=== PATIENT | female | born 1950 | race African-American/Black ===

== ENCOUNTER 2018-06-09 22:25 | Emergency (ER) | END 2018-06-10 03:02 | disposition home or self-care (01) ==

== ENCOUNTER 2019-02-01 07:17 | Emergency (ER) | payer SELFPAY ==
[~2019-02-01] VITALS: Ht 170.2 cm; Wt 81.6 kg
[~2019-02-01 07:17] MED LIST: AMLO-496 PO; ASCO500C7 PO; CEPH-443 PO; HYDR25TA6 PO; IBUP-1542 PO; OMEG-135 PO; TRAM50TA2 PO; VITA-110 PO
[2019-02-01 07:27] VITALS: Ht 170.2 cm; Wt 81.6 kg
--- NOTE | 2019-02-01 08:27 | ERD ---
ER Documentation Chief Complaint Chief Complaint lower abdominal pain x 2 weeks getting worse HPI This is a 68-year-old female with a past medical history of hypertension, previous hysterectomy, who is presenting with 2 weeks of waxing and waning progressive worsening moderate right lower quadrant cramping sharp aching abdominal pain. The patient reports that she notices a worsening pain when she exercises, moves a certain way or bears down. She reports that her pain is improved with rest and not moving. The patient does report intermittent episodes of nausea without any vomiting. She has not had any constipation or diarrhea. She has not had any black or bloody or tarry stools. She has not had any dysuria or hematuria or urgency or frequency. Her symptoms are unchanged with eating. The patient denies feeling sick recently. The patient denies fever or chills. The patient has had no headache or vision changes. The patient does not endorse neck or back pain. The patient denies lightheadedness or dizziness. The patient has had no chest pain or trouble breathing. The patient has had no focal deficits. The patient has had no weakness or numbness or tingling to the face or extremities. ROS All systems reviewed and are negative except as per history of present illness. Medications Home Meds Active Scripts Tramadol HCl (Tramadol HCl) 50 Mg Tablet, 50 MG PO Q4 PRN for PAIN, #20 TAB Prov:DHRUV TALBERTRamu 06/10/18 Reported Medications Ascorbic Acid* (Vitamin C*) 500 Mg Capsule.sa, 1000 MG PO DAILY, CAP 06/09/18 Vitamin E* (Vitamin E*) 1,000 Unit Capsule, 1000 UNIT PO DAILY, CAP 06/09/18 [place]-3 Fatty Acids/Fish Oil (Fish Oil 1,000 mg Capsule) 1 Each Capsule, 1 EACH PO, CAP 06/09/18 Amlodipine Bes/Olmesartan Med (Amlodipine-Olmesartan 10-20 mg) 1 Each Tablet, 1 EACH PO, TAB 06/09/18 Hydrochlorothiazide* (Hydrochlorothiazide*) 25 Mg Tab, 25 MG PO BID, #60 TAB 06/09/18 Allergies Allergies: Coded Allergies: codeine (Verified Allergy, Unknown, 06/09/18) PMhx/Soc History of Surgery: Yes (Total abdominal hysterectomy) Anesthesia Reaction: No Hx Neurological Disorder: No Hx Respiratory Disorders: No Hx Cardiac Disorders: Yes (HTN) Hx Psychiatric Problems: No Hx Miscellaneous Medical Probl: Yes (FX LLE) Hx Alcohol Use: Yes (occasional wine) Hx Substance Use: No Hx Tobacco Use: No FmHx Family History: No diabetes Physical Exam Vitals Vital Signs Date Temp Pulse Resp B/P (MAP) Pulse Ox O2 O2 Flow FiO2 Time Delivery Rate 02/01/19 50 19 134/95 100 Room Air 08:28 (108) 02/01/19 97.3 57 20 162/84 95 07:27 (110) Physical Exam Const: No acute distress Head: Atraumatic Eyes: Normal Conjunctiva ENT: Normal External Ears, Nose and Mouth. Neck: Full range of motion. No meningismus. Resp: Clear to auscultation bilaterally Cardio: Regular rate and rhythm, no murmurs Abd: Mild right lower quadrant tenderness to palpation. No palpable inguinal herniation. Soft, non tender, non distended. Normal bowel sounds Skin: No petechiae or rashes Back: No midline or flank tenderness Ext: No cyanosis, or edema Neur: Awake and alert Psych: Normal Mood and Affect Result Diagram: 02/01/19 0815 02/01/19 0815 Results 24 hrs Laboratory Tests Test 02/01/19 08:15 White Blood Count 8.0 10^3/ul Red Blood Count 4.68 10^6/ul Hemoglobin 14.4 g/dl Hematocrit 43.7 % Mean Corpuscular Volume 93.4 fl Mean Corpuscular Hemoglobin 30.8 pg Mean Corpuscular Hemoglobin Concent 33.0 g/dl Red Cell Distribution Width 14.8 % Platelet Count 216 10^3/UL Mean Platelet Volume 10.4 fl Immature Granulocytes % 0.300 % Neutrophils % 70.4 % Lymphocytes % 20.1 % Monocytes % 6.8 % Eosinophils % 1.8 % Basophils % 0.6 % Nucleated Red Blood Cells % 0.0 /100WBC Immature Granulocytes # 0.020 10^3/ul Neutrophils # 5.6 10^3/ul Lymphocytes # 1.6 10^3/ul Monocytes # 0.5 10^3/ul Eosinophils # 0.1 10^3/ul Basophils # 0.1 10^3/ul Nucleated Red Blood Cells # 0.0 10^3/ul Urine Color STRAW Urine Clarity SLIGHTLY CLOUDY Urine pH 6.0 Urine Specific [place] 1.003 Urine Ketones NEGATIVE mg/dL Urine Nitrite NEGATIVE mg/dL Urine Bilirubin NEGATIVE mg/dL Urine Urobilinogen NEGATIVE mg/dL Urine Leukocyte Esterase 2+ Keli/ul Urine Microscopic RBC 4 /HPF Urine Microscopic WBC 6 /HPF Urine Squamous Epithelial Cells FEW /HPF Urine Bacteria FEW /HPF Urine Hemoglobin NEGATIVE mg/dL Urine Glucose NEGATIVE mg/dL Urine Total Protein NEGATIVE mg/dl Sodium Level 144 mmol/L Potassium Level 3.7 mmol/L Chloride Level 105 mmol/L Carbon Dioxide Level 30 mmol/L Anion Gap 9 Blood Urea Nitrogen 13 mg/dl Creatinine 0.64 mg/dl Est Glomerular Filtrat Rate mL/min > 60 mL/min Glucose Level 109 mg/dl Calcium Level 9.7 mg/dl Total Bilirubin 1.1 mg/dl Direct Bilirubin 0.00 mg/dl Indirect Bilirubin 1.1 mg/dl Aspartate Amino Transf (AST/SGOT) 23 IU/L Alanine Aminotransferase (ALT/SGPT) 23 IU/L Alkaline Phosphatase 68 IU/L Total Protein 7.7 g/dl Albumin 4.4 g/dl Globulin 3.30 g/dl Albumin/Globulin Ratio 1.33 Lipase 320 U/L Procedures/MDM MDM The patient's presentation warrants further investigation. Previous medical records, if available, were reviewed. LABS The patient's laboratory testing was obtained and reviewed. No emergent treatm ent was required unless described below. CBC: No E/o systemic infection or severe anemia or thrombocytopenia Chemistry: No E/o severe acidosis or alkalosis or renal failure or liver disease or diabetic ketoacidosis Lipase: No E/o pancreatitis Urine: E/o acute infection without hematuria IMAGING Imaging and Radiology interpretation reviewed. CT abdomen pelvis 1. No evidence of acute abdominopelvic inflammatory process or lymphadenopathy. 2. 1.1 cm indeterminate hypodense hepatic lesions, possibly a cistern angioma. If there is further concern, consider multi phase liver protocol CT or MRI. 3. Diverticulosis. 4. Moderate aortoiliac atherosclerosis. 5. Small fat-containing umbilical hernia. Electronically viewed and signed by .Ranjith Miller MD, on 02/01/2019 08:59 TREATMENT/DISPOSITION The patient presents for right lower quadrant abdominal pain. The patient's symptoms do not appear consistent with appendicitis, but she has not had a previous appendectomy, and this does need to be considered. An inguinal hernia is also a possibility, though clinically cannot palpate an obvious hernia. A CT scan was completed that was reassuring. There is no evidence of appendicitis. There is no evidence of hernia. The patient had a previous hysterectomy, removing my suspicion for a pathology. Given the patient's previous surgery, inflammation or adhesions from scar tissue is certainly a possibility. There is no evidence of small bowel obstruction. There is evidence of a possible urinary tract infection which could be the etiology of her symptoms. This will require treatment. The patient does not have any evidence of peritonitis. The patient does not have clinical symptoms concerning for mesenteric ischemia or ischemic colitis. There is no evidence of viscus perforation. The patient does not have right upper quadrant tenderness, and I have low suspicion for gallstones, cholecystitis or biliary colic. The patient does not have any epigastric pain. I have low suspicion for gastritis, PUD or GERD. The patient does not have left upper quadrant tenderness. I have low suspicion for pancreatitis. The patient does not have any left lower quadrant tenderness. There is evidence of diverticulosis, but I have low suspicion for diverticulitis. The patient does not have any flank tenderness. The patient does not have gross hematuria. I have decreased suspicion for nephrolithiasis or renal colic. The patient does not have any palpable pulsatile mass or severe abdominal pain radiating to the back. I have low suspicion for aortic aneurysm, dissection or rupture. There is evidence of aortoiliac atherosclerosis, but I do not suspect this to be the etiology of her symptoms today. This may be followed up on an outpatient setting. DISCHARGE Upon reevaluation of the patient, symptoms have improved. No emergent diagnoses were identified. At this time, I feel that the patient stable for discharge. The patient was instructed to follow-up with a primary care physician in 1-3 days. The patient will be given strict precautions with which to return to the emergency department. Prescriptions: Ibuprofen, Keflex The patient's blood pressure was elevated at greater than 120/80 while in the emergency department. The patient was otherwise stable with no evidence of hypertensive urgency or emergency. The patient does not require admission for blood pressure control. I have discussed with the patient the risks of hypertension. I have instructed the patient to return to the ER for any new or worsening symptoms including chest pain, shortness of breath, headache, blurred vision, confusion, nausea, vomiting or LOC. I have advised the patient to follow up with the primary care physician for outpatient monitoring and treatment for hypertension in 1-3 days. DISCLAIMER Inadvertent spelling and grammatical errors are likely due to EHR/dictation software use and do not reflect on the overall quality of patient care. Note that the electronic time recorded on this note does not necessarily reflect the actual time of the patient encounter. Departure Diagnosis: Primary Impression: Abdominal pain Abdominal location: right lower quadrant Qualified Codes: R10.31 - Right lower quadrant pain Additional Impressions: Urinary tract infection Urinary tract infection type: acute cystitis Hematuria presence: without hematuria Qualified Codes: N30.00 - Acute cystitis without hematuria Diverticulosis Aorto-iliac atherosclerosis Condition: Stable Patient Instructions: Abdominal Pain, Diverticulosis, Understanding Urinary Tract Infections (UTIs) Additional Instructions: Thank you for for coming to [facility] for your care today. Please ask your nurse or provider if you have questions about your care today and do not leave until all your questions have been answered. Please use any medications given as directed and follow-up with your doctor (or the doctor you were referred to) in the next 1-3 days. If you do not have a primary care doctor you may follow up at the [facility] or [facility] (listed below). You may also use motrin and tylenol as needed for fever and/or pain unless instructed otherwise by your provider or nurse. Indications for more urgent follow-up have been discussed, but you may return to the Emergency Department at ANY time for any worrisome or worsening symptoms. If you have abdominal pain, please know that no test or exam you received is perfect and you should follow up within 8 hours for continued pain. If you had any imaging studies today, such as an X-Ray or CT Scan, these studies will be reviewed later by a radiologist. You will be called if there are important findings that were not identified today, so make sure the contact information you provided at registration is correct. If you received any narcotic pain control medicine today, such as Vicodin, Morphine or Dilaudid, your coordination and judgment may be affected for a number of hours. Please do not drive or operate heavy machinery, and you may want someone to assist you at home. If you were given a prescription for narcotic medication, be aware that it is very addictive- use sparingly and only if necessary. PLEASE SEEK FURTHER EVALUATION AND MANAGEMENT AT YOUR DOCTORS OFFICE WITHIN THE NEXT 1-3 DAYS. IT IS YOUR RESPONSIBILITY TO MAKE AN APPOINTMENT FOR FOLOW-UP CARE. IF YOU HAVE A PRIMARY DOCTOR, PLEASE CALL THEIR OFFICE TO SCHEDULE AN APPOINTMENT FOR FOLLOW UP. IF YOU DO NOT HAVE A PRIMARY DOCTOR YOU CAN CALL OUR PHYSICIAN REFERRAL HOTLINE AT IF YOU CAN NOT AFFORD TO SEE A PHYSICIAN YOU CAN CHOSE FROM THE FOLLOWING [facility]: [facility] [address] [facility] [address] [facility] [address] [facility] [address] [facility] [address] [facility]. [address] RUI KING MD Feb 01, 2019 08:22
[2019-02-01] MEDS ORDERED: KETOROLAC 15 MG INJ IV STA (10:07)
[2019-02-01 10:20] VITALS: BP 150/89; PULSE 50; RESP 19
== END 2019-02-01 10:30 | disposition home or self-care (01) ==
LOC: E/R 07:17
DX: N30.00 Acute cystitis without hematuria (principal); I10 Essential (primary) hypertension; K57.90 Diverticulosis of intestine, part unspecified, without perforation or abscess without bleeding; I70.0 Atherosclerosis of aorta
CPT/HCPCS: 36415; 74176; 80053; 81001; 83690; 85025